=== PATIENT | female | born 1940 | race Caucasian/White ===

== ENCOUNTER → 2024-11-07 | Outpatient (CLI) | payer MEDICARE, MEDICAID, SELFPAY ==
--- NOTE | 2024-11-07 10:00 | XR_ITS ---
Examination: CT chest with intravenous contrast 2-D sagittal and coronal reconstructions Exam date and time: November 07, 2024 10:00 AM INDICATIONS: Diagnosis malignant neoplasm of the colon 2019, shortness of breath this week CTDI:vol (mGy) 10.5 DLP: (mGycm) 349.30 Technique: Multiple axial sections of the thorax have been obtained. Sections have been obtained, 3 mm slice thickness. Mediastinal and lung density settings have been obtained. Intravenous contrast administered, 60 cc Isovue-370. 2-D sagittal, coronal images obtained. Low dose protocols were performed. One or more of the following dose reduction techniques were used; automated exposure control, adjustment of the mA and/or KV according to patient size, use of iterative reconstruction technique. 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, transverse dimension descending thoracic aorta 3.3 cm No mediastinal lymphadenopathy 3 mm pulmonary nodule right lower lobe image 153 3 mm pulmonary nodule right lower lobe image 191 6 mm pulmonary nodule right upper lobe image 204 Atelectasis in the right lower lobe No pulmonary artery emboli Retrocardiac gastric hernia No focal liver or splenic lesions Bilateral renal cortical thinning 11 mm right renal calculus IMPRESSION: Recommend CTA chest post intravenous contrast follow-up to exclude Paul type B thoracic aortic dissection Noncalcified pulmonary nodules as above, with this study as baseline recommend 1 additional 6 month follow-up CT chest without contrast 11 mm nonobstructing right renal calculus
== END | disposition home or self-care (01) ==
PROVIDERS: PCP Hospitalist; Referring Provider Hospitalist; Visit Provider Hospitalist
DX: R91.8 Other nonspecific abnormal finding of lung field (principal); N20.0 Calculus of kidney
CPT/HCPCS: 71260; A4649; Q9967